=== PATIENT | female | born 1955 | race African-American/Black ===

== ENCOUNTER 2016-10-04 15:00 | Emergency (ER) | payer MEDICARE, OTHER ==
[~2016-10-04] VITALS: Ht 160 cm; Wt 83.5 kg
[~2016-10-04 15:00] MED LIST: ALPRAZOLAM; No home medications
--- NOTE | 2016-10-04 15:04 | ED.ADGEN ---
Adult General Chief Complaint Chief Complaint Elevated d-dimer HPI HPI Patient is a 61 year old who presents with abnormal lab values. According to patient she's been having cramps in her legs the last several months that come and go. She states is worse if she walks or if she lays down in her muscles cramp. She's also been having some shortness of breath when she is up the steps. She states this is been stable for several months also. She was seen by her primary care physician who ordered some blood tests and then today told her that her d-dimer was elevated. She was sent into the ER for a CT Jean of her chest to rule out PE. She denies any shortness of breath orthopnea, chest discomfort nausea vomiting. She does complain about entire leg cramps. Review of Systems Review of Systems Constitutional: Denies fever or chills [] Eyes: Denies change in visual acuity, redness, or eye pain [] HENT: Denies nasal congestion or sore throat [] Respiratory: Denies cough or shortness of breath [] Cardiovascular: No additional information not addressed in HPI [] GI: Denies abdominal pain, nausea, vomiting, bloody stools or diarrhea [] : Denies dysuria or hematuria [] Musculoskeletal: Denies back pain or joint pain [] Integument: Denies rash or skin lesions [] Neurologic: Denies headache, focal weakness or sensory changes [] Endocrine: Denies polyuria or polydipsia [] Current Medications Current Medications Current Medications Medications (Trade) Dose Ordered Sig/Lucian Start Time Stop Time Status Last Admin Dose Admin Iohexol (Omnipaque 300 Mg/ml) 75 ml 1X ONCE 10/04/16 15:45 10/04/16 15:46 DC 10/04/16 15:57 75 ML Sodium Chloride (Iv Sodium Chloride 0.9% 1,000ml) 1,000 ml @ 1,000 mls/hr Q1H 10/04/16 15:45 10/04/16 16:44 DC 10/04/16 15:45 1,000 MLS/HR Allergies Allergies Allergies Coded Allergies Type Severity Reaction Last Updated Verified No Known Drug Allergies 08/30/14 No Physical Exam Physical Exam Constitutional: Well developed, well nourished, no acute distress, non-toxic appearance. [] HENT: Normocephalic, atraumatic, bilateral external ears normal, oropharynx moist, no oral exudates, nose normal. [] Eyes: PERRLA, EOMI, conjunctiva normal, no discharge. [] Neck: Normal range of motion, no tenderness, supple, no stridor. [] Cardiovascular:Heart rate regular rhythm, no murmur [] Lungs & Thorax: Bilateral breath sounds clear to auscultation [] Abdomen: Bowel sounds normal, soft, no tenderness, no masses, no pulsatile masses. [] Skin: Warm, dry, no erythema, no rash. [] Back: No tenderness, no CVA tenderness. [] Extremities: No tenderness, no cyanosis, no clubbing, ROM intact, no edema. [] Neurologic: Alert and oriented X 3, normal motor function, normal sensory function, no focal deficits noted. [] Psychologic: Affect normal, judgement normal, mood normal. [] Current Patient Data Vital Signs Vital Signs Date Time Temp Pulse Resp B/P Pulse Ox O2 Delivery O2 Flow Rate FiO2 10/04/16 15:07 98.1 70 16 100 Room Air Lab Results Laboratory Tests Test 10/04/16 15:50 10/04/16 16:23 White Blood Count 7.0x10^3/uL (4.0-11.0) Red Blood Count 4.41x10^6/uL (3.50-5.40) Hemoglobin 12.7g/dL (12.0-15.5) Hematocrit 38.2% (36.0-47.0) Mean Corpuscular Volume 87fL (79-100) Mean Corpuscular Hemoglobin 29pg (25-35) Mean Corpuscular Hemoglobin Concent 33g/dL (31-37) Red Cell Distribution Width 14.2% (11.5-14.5) Platelet Count 346x10^3/uL (140-400) Neutrophils (%) (Auto) 48% (31-73) Lymphocytes (%) (Auto) 41% (24-48) Monocytes (%) (Auto) 8% (0-9) Eosinophils (%) (Auto) 2% (0-3) Basophils (%) (Auto) 1% (0-3) Neutrophils # (Auto) 3.3x10^3uL (1.8-7.7) Lymphocytes # (Auto) 2.8x10^3/uL (1.0-4.8) Monocytes # (Auto) 0.6x10^3/uL (0.0-1.1) Eosinophils # (Auto) 0.2x10^3/uL (0.0-0.7) Basophils # (Auto) 0.1x10^3/uL (0.0-0.2) Prothrombin Time 10.0SEC (9.4-11.4) Prothrombin Time INR 1.0 (0.9-1.1) PTT 26SEC (23-33) Sodium Level 145mmol/L (136-145) Potassium Level 3.6mmol/L (3.5-5.1) Chloride Level 106mmol/L (98-107) Carbon Dioxide Level 29mmol/L (21-32) Anion Gap 10 (6-14) Blood Urea Nitrogen 9mg/dL (7-20) Creatinine 0.8mg/dL (0.6-1.0) Estimated GFR (Cockcroft-Gault) 88.8 BUN/Creatinine Ratio 11 (6-20) Glucose Level 86mg/dL (70-99) Calcium Level 9.2mg/dL (8.5-10.1) Magnesium Level 2.0mg/dL (1.8-2.4) Total Bilirubin 0.3mg/dL (0.2-1.0) Aspartate Amino Transferase (AST) 16U/L (15-37) Alanine Aminotransferase (ALT) 19U/L (14-59) Alkaline Phosphatase 76U/L (46-116) Creatine Kinase 166U/L (26-192) Creatine Kinase MB (Mass) 0.8ng/mL (0.0-3.6) Creatine Kinase MB Relative Index 0.5% (0-4) Troponin I Quantitative < 0.017ng/mL (0-0.055) DN-Mny-T-Type Natriuretic Peptide 66pg/mL (0-124) Total Protein 7.7g/dL (6.4-8.2) Albumin 3.8g/dL (3.4-5.0) Albumin/Globulin Ratio 1.0 (1.0-1.7) Urine Collection Type Unknown Urine Color Straw Urine Clarity Hazy Urine pH 6.5 Urine Specific [place] 1.010 Urine Protein Neg (NEG-TRACE) Urine Glucose (UA) Negmg/dL (NEG) Urine Ketones (Stick) Negmg/dL (NEG) Urine Blood Neg (NEG) Urine Nitrite Neg (NEG) Urine Bilirubin Neg (NEG) Urine Urobilinogen Dipstick 0.2mg/dL (0.2 mg/dL) Urine Leukocyte Esterase Trace (NEG) Urine RBC 1-2/HPF (0-2) Urine WBC 5-10/HPF (0-4) Urine Squamous Epithelial Cells Many/LPF Urine Bacteria 0/HPF (0-FEW) Urine Opiates Screen Neg (NEG) Urine Methadone Screen Neg (NEG) Urine Barbiturates Neg (NEG) Urine Phencyclidine Screen Neg (NEG) Urine Amphetamine/Methamphetamine Neg (NEG) Urine Benzodiazepines Screen Pos (NEG) Urine Cocaine Screen Neg (NEG) Urine Cannabinoids Screen Neg (NEG) Urine Ethyl Alcohol Neg (NEG) EKG EKG EKG shows sinus rhythm with a rate of 62 bpm, no ST elevations appreciated, T- wave inversions noted in leads 3, aVF, left axis deviation, QTC 420 ms, as interpreted by me. Radiology/Procedures Radiology/Procedures [address] [address] IMAGING REPORT Signed PATIENT: HALLIE SHINE ACCOUNT: [id number] : 1955 LOCATION: ER AGE: 61 SEX: F EXAM STATUS: REG ER ORD. PHYSICIAN: MARYELLEN STEEN MD REASON: bilateral leg cramps PROCEDURE: VENOUS LOWER EXT BILATERAL Indication bilateral leg cramping. Grayscale color Doppler and spectral imaging was performed. Examination was targeted to the veins of the lower extremities. Bilaterally the common femoral, femoral and popliteal vessels demonstrate normal flow compressibility and augmentation. No thrombus is seen. The visualized calf veins, bilaterally, appeared unremarkable. IMPRESSION: Negative bilateral lower extremity venous analysis for DVT DICTATED AND SIGNED BY: CESAR CASTANON MD DATE: 10/04/16 2606 CC: ALLEN SLATER MD; MARYELLEN STEEN MD ~ [address] [address] IMAGING REPORT Signed PATIENT: HALLEI SHINE ACCOUNT: [id number] : 1955 LOCATION: ER AGE: 61 SEX: F EXAM STATUS: REG ER ORD. PHYSICIAN: MARYELLEN STEEN MD REASON: elevated D dimer PROCEDURE: CT ANGIOGRAPHY CHEST Indication chest pain. Elevated d-dimer. Contrast imaging through the chest was performed. Examination was tailored for the detection of pulmonary embolus. MIP images were generated and reviewed. 70 cc of Omnipaque 300 was administered intravenously. Note is made of a noncontrast examination of the chest 06/02/2015. Imaging through the upper abdomen shows no acute finding. There are bilateral renal cysts which appear similar to the previous exam. The thoracic aorta appears unremarkable. There is no significant hilar or mediastinal adenopathy. The study is negative for pulmonary embolus. There are scattered areas of pleural-parenchymal scarring. An acute parenchymal infiltrate is not seen. A dominant soft tissue mass is not seen. IMPRESSION: No acute finding apparent in the chest. Negative study for pulmonary embolus Renal cysts PQRS Compliance Statement: One or more of the following individualized dose reduction techniques were utilized for this examination: 1. Automated exposure control 2. Adjustment of the mA and/or kV according to patient size 3. Use of iterative reconstruction technique DICTATED AND SIGNED BY: CESAR CASTANON MD DATE: 10/04/16 1605 CC: ALLEN SLATER MD; MARYELLEN STEEN MD ~ Course & Med Decision Making Course & Med Decision Making Pertinent Labs and Imaging studies reviewed. (See chart for details) CT angiogram and bilateral lower show me Dopplers of both negative. Her symptoms have been going on for several months. Otherwise her vitals are stable condition. She is being discharged home to follow back up with her primary care physician. Return precautions given for increasing worsening shortness of breath , fevers, chest pain or other concerns. She did wonder why she is wheezing occasionally when she bends her neck and looks down and offered her an albuterol inhaler, she said that she would like to try to makes her feel better. She denies any dysuria or abdominal pain therefore do not believe she has a UTI. Final Impression Final Impression Elevated d-dimer Leg cramps Problems: Dragon Disclaimer Dragon Disclaimer This electronic medical record was generated, in whole or in part, using a voice recognition dictation system. MARYELLEN STEEN MD October 04, 2016 15:04
[2016-10-04 15:07] VITALS: BP 133/85
--- NOTE | 2016-10-04 15:29 | EKG ---
[address] [address] Test Date: 2016-10-04 Test Time: 15:32:16 Pat Name: HALLIE SHINE Department: Room: Gender: F Contract Admin: : 1955 Requested By: MARYELLEN STEEN Order Number: [id number] Reading MD: Anthony Singh Measurements Intervals [place] Rate: 62 P: [place]: QRS: -24 QRSD: 76 T: 4 QT: 414 QTc: 422 Interpretive Statements SINUS RHYTHM NON-SPECIFIC ST/T CHANGES Electronically Signed On 10-06-2016 10:11:18 CDT by Anthony Singh
[2016-10-04] MEDS ORDERED: IV NORMAL SALINE 1,000ML 1,000 ML IV SCH (15:45)
[2016-10-04] MEDS ORDERED: IOHEXOL 300 MG/ML 75 ML VIAL. IV ONE (15:45)
--- NOTE | 2016-10-04 16:18 | RAD ---
Indication chest pain. Elevated d-dimer. Contrast imaging through the chest was performed. Examination was tailored for the detection of pulmonary embolus. MIP images were generated and reviewed. 70 cc of Omnipaque 300 was administered intravenously. Note is made of a noncontrast examination of the chest 06/02/2015. Imaging through the upper abdomen shows no acute finding. There are bilateral renal cysts which appear similar to the previous exam. The thoracic aorta appears unremarkable. There is no significant hilar or mediastinal adenopathy. The study is negative for pulmonary embolus. There are scattered areas of pleural-parenchymal scarring. An acute parenchymal infiltrate is not seen. A dominant soft tissue mass is not seen. IMPRESSION: No acute finding apparent in the chest. Negative study for pulmonary embolus Renal cysts PQRS Compliance Statement: One or more of the following individualized dose reduction techniques were utilized for this examination: 1. Automated exposure control 2. Adjustment of the mA and/or kV according to patient size 3. Use of iterative reconstruction technique
--- NOTE | 2016-10-04 16:30 | RAD ---
Indication bilateral leg cramping. Grayscale color Doppler and spectral imaging was performed. Examination was targeted to the veins of the lower extremities. Bilaterally the common femoral, femoral and popliteal vessels demonstrate normal flow compressibility and augmentation. No thrombus is seen. The visualized calf veins, bilaterally, appeared unremarkable. IMPRESSION: Negative bilateral lower extremity venous analysis for DVT
[2016-10-04 16:32] LABS: BASO # 0.1 x10^3/uL (0.0-0.2); BASO % 1 % (0-3); EOS # 0.2 x10^3/uL (0.0-0.7); EOS % 2 % (0-3); HEMATOCRIT 38.2 % (36.0-47.0); HEMOGLOBIN 12.7 g/dL (12.0-15.5); LYMPH # 2.8 x10^3/uL (1.0-4.8); LYMPH % 41 % (24-48); MEAN CORPUSCULAR HEMOGLOBIN 29 pg (25-35); MEAN CORPUSCULAR HGB CONC 33 g/dL (31-37); MEAN CORPUSCULAR VOLUME 87 fL (79-100); MONO # 0.6 x10^3/uL (0.0-1.1); MONO % 8 % (0-9); NEUT # 3.3 x10^3uL (1.8-7.7); NEUT % 48 % (31-73); PLATELET COUNT 346 x10^3/uL (140-400); RED BLOOD COUNT 4.41 x10^6/uL (3.50-5.40); RED CELL DISTRIBUTION WIDTH 14.2 % (11.5-14.5)
[2016-10-04 16:45] LABS: AMPHETAMINE/METHAMPHETAMINE NEG (NEG); BARBITURATES NEG (NEG); BENZODIAZEPINES POS (NEG); CANNABINOIDS NEG (NEG); COCAINE NEG (NEG); METHADONE NEG (NEG); OPIATES NEG (NEG); PHENCYCLIDINE NEG (NEG)
[2016-10-04 16:51] LABS: ALBUMIN 3.8 g/dL (3.4-5.0); CALCIUM 9.2 mg/dL (8.5-10.1); CREATININE 0.8 mg/dL (0.6-1.0); GFR 88.8; POTASSIUM 3.6 mmol/L (3.5-5.1); TOTAL BILIRUBIN 0.3 mg/dL (0.2-1.0); TOTAL PROTEIN 7.7 g/dL (6.4-8.2)
[2016-10-04 17:11] LABS: BILIRUBIN,URINE NEG (NEG); CLARITY,URINE HAZY; COLOR,URINE STRAW; GLUCOSE,URINE NEG (NEG); NITRITE,URINE NEG (NEG); UROBILINOGEN,URINE 0.2 mg/dL (0.2 mg/dL)
[2016-10-04 17:12] LABS: BACTERIA,URINE 0 /HPF (0-FEW); SQUAMOUS EPITHELIAL CELL,UR MANY /LPF
[2016-10-04] MEDS ORDERED: ALBU18HF IH (17:12)
== END 2016-10-04 17:25 | disposition home or self-care (01) ==
LOC: ER 15:00
DX: G47.62 Sleep related leg cramps (principal); R79.1 Abnormal coagulation profile
CPT/HCPCS: 36415; 71275; 80053; 80305; 81001; 82553; 83735; 83880; 84443; 84484; 85027; 85610; 85730; 87086; 93005; 93970; 96360; 99285; Q9967; G0481; J7030

== ENCOUNTER 2018-11-29 13:20 | Emergency (ER) | payer OTHER ==
[~2018-11-29] VITALS: Ht 160 cm; Wt 86.2 kg
[~2018-11-29 13:20] MED LIST changes: +ALBU2.5V8 IH
[2018-11-29 14:03] LABS: BASO % 1 % (0-3); EOS # 0.2 x10^3/uL (0.0-0.7); EOS % 4 % (0-3); HEMATOCRIT 37.1 % (36.0-47.0); HEMOGLOBIN 12.6 g/dL (12.0-15.5); LYMPH % 38 % (24-48); MEAN CORPUSCULAR HEMOGLOBIN 29 pg (25-35); MEAN CORPUSCULAR HGB CONC 34 g/dL (31-37); MEAN CORPUSCULAR VOLUME 85 fL (79-100); MONO # 0.3 x10^3/uL (0.0-1.1); MONO % 6 % (0-9); NEUT # 2.7 x10^3uL (1.8-7.7); NEUT % 51 % (31-73); PLATELET COUNT 375 x10^3/uL (140-400); RED BLOOD COUNT 4.36 x10^6/uL (3.50-5.40); RED CELL DISTRIBUTION WIDTH 15.1 % (11.5-14.5); WHITE BLOOD COUNT 5.2 x10^3/uL (4.0-11.0)
--- NOTE | 2018-11-29 14:03 | RAD ---
Examination: CT HEAD WO CONTRAST History: Headaches Comparison/Correlation: None Findings: Axial images of the head were obtained without contrast. Atrophy is present. No intracranial hemorrhage, midline shift, or mass effect. Bony structures are unremarkable. Visualized paranasal sinuses are unremarkable. Impression: No acute process. PQRS Compliance Statement: One or more of the following individualized dose reduction techniques were utilized for this examination: 1. Automated exposure control 2. Adjustment of the mA and/or kV according to patient size 3. Use of iterative reconstruction technique Electronically signed by: Jose Pickard MD (11/29/2018 2:00 PM) [id number]
[2018-11-29 14:10] LABS: ALBUMIN 3.8 g/dL (3.4-5.0); CALCIUM 8.8 mg/dL (8.5-10.1); GFR 68.2; MAGNESIUM 1.9 mg/dL (1.8-2.4); POTASSIUM 3.9 mmol/L (3.5-5.1); TOTAL BILIRUBIN 0.2 mg/dL (0.2-1.0); TOTAL PROTEIN 7.6 g/dL (6.4-8.2)
--- NOTE | 2018-11-29 14:14 | PHYS DOC ---
Past History Past Medical History: Anxiety, Depression, High Cholesterol, Hypertension Past Surgical History: No Surgical History Alcohol Use: None Drug Use: None Adult General Chief Complaint Chief Complaint: DIZZY/LIGHT HEADED HPI HPI 63-year-old female presents from her PCPs office with concern for suicidal thoughts. The patient told my reading intervention teacher that she is here for recurring headaches, dizziness and chronic pain after a fall several months ago. The pa perlita tells me that she has been depressed since her fall not a flight of stairs several months ago. She does feel like she has chronic pain in multiple locations in his been having headaches and dizziness. She tells me that she is on psychiatric medications for depression and possibly bipolar. They have been adjusting these recently. She further tells me that she does have thoughts of being better off . She denies any intention to kill herself. She does not have a plan. She states that these thoughts are not overly frequent, but they do exist. She admits to feeling generally depressed about her current situation. She denies any new trauma. She has no specific dysfunctions, just pain in multiple locations. She does complain that she has had intermittent dizziness and also to headaches. She also tells me that her significant other told her she has been having involuntary movements. Her psychiatrist told her she does not believe it is medication related. No further workup has been done. The patient is not on any chronic pain medication. Review of Systems Review of Systems Constitutional: Denies fever or chills [] Eyes: Denies change in visual acuity, redness, or eye pain [] HENT: Denies nasal congestion or sore throat [] Respiratory: Denies cough or shortness of breath [] Cardiovascular: No additional information not addressed in HPI [] GI: Denies abdominal pain, nausea, vomiting, bloody stools or diarrhea [] : Denies dysuria or hematuria [] Musculoskeletal: Multi-joint pain[] Integument: Denies rash or skin lesions [] Neurologic: Headache. Denies focal weakness or sensory changes [] Endocrine: Denies polyuria or polydipsia [] All other systems were reviewed and found to be within normal limits, except as documented in this note. Allergies Allergies Allergies Coded Allergies Type Severity Reaction Last Updated Verified No Known Drug Allergies 08/30/14 No Physical Exam Physical Exam Constitutional: Well developed, well nourished, no acute distress, non-toxic appearance. [] HENT: Normocephalic, atraumatic, bilateral external ears normal, oropharynx moist, no oral exudates, nose normal. [] Eyes: PERRLA, EOMI, conjunctiva normal, no discharge. [] Neck: Normal range of motion, no tenderness, supple, no stridor. [] Cardiovascular:Heart rate regular rhythm, no murmur [] Lungs & Thorax: Bilateral breath sounds clear to auscultation [] Abdomen: Bowel sounds normal, soft, no tenderness, no masses, no pulsatile masses. [] Skin: Warm, dry, no erythema, no rash. [] Back: No tenderness, no CVA tenderness. [] Extremities: No tenderness, no cyanosis, no clubbing, ROM intact, no edema. [] Neurologic: Alert and oriented X 3, normal motor function, normal sensory function, no focal deficits noted. [] Psychologic: Affect flat, judgement normal, mood depressed. [] Current Patient Data Vital Signs Vital Signs Date Time Temp Pulse Resp B/P (MAP) Pulse Ox O2 Delivery O2 Flow Rate FiO2 11/29/18 13:48 98.7 82 18 98 Room Air EKG EKG Sinus rhythm, rate 79, leftward axis, no ST elevations or depressions.[] Radiology/Procedures Radiology/Procedures [] Impressions: Examination: CT HEAD WO CONTRAST History: Headaches Comparison/Correlation: None Findings: Axial images of the head were obtained without contrast. Atrophy is present. No intracranial hemorrhage, midline shift, or mass effect. Bony structures are unremarkable. Visualized paranasal sinuses are unremarkable. Impression: No acute process. PQRS Compliance Statement: One or more of the following individualized dose reduction techniques were utilized for this examination: 1. Automated exposure control 2. Adjustment of the mA and/or kV according to patient size 3. Use of iterative reconstruction technique Electronically signed by: Jose Chamberlain MD (11/29/2018 2:00 PM) [id number] DICTATED AND SIGNED BY: JOSE CHAMBERLAIN MD DATE: 11/29/18 1400 CC: SIERRA CLIFFORD DO; ALLEN SLATER MD ~ Course & Med Decision Making Course & Med Decision Making Pertinent Labs and Imaging studies reviewed. (See chart for details) The patient's head CT is negative for acute findings. EKG is unremarkable. Her labs are unremarkable. We have ordered a psychiatric consultation which is pending. Her labs are unremarkable. The psychiatrist believes patient can be safely managed as an outpatient. She is not actively suicidal. She is stable for discharge at this time. [] Dragon Disclaimer Dragon Disclaimer This electronic medical record was generated, in whole or in part, using a voice recognition dictation system. Departure Departure: Impression: Primary Impression: Depression Disposition: 01 HOME, SELF-CARE Condition: GUARDED Referrals: ALLEN SLATER MD (PCP) Patient Instructions: Depression, Adult, [id number] SIERRA CLIFFORD DO Nov 29, 2018 14:14
--- NOTE | 2018-11-29 14:28 | EKG ---
[address] [address] Test Date: 2018-11-29 Test Time: 14:24:58 Pat Name: HALLIE SHINE Department: Room: Gender: F Big Data Developer: : 1955 Requested By: SIERRA CLIFFORD Order Number: [id number] Reading MD: Measurements Intervals [place] Rate: 79 P: 38 DE: 164 QRS: -29 QRSD: 76 T: 24 QT: 390 QTc: 448 Interpretive Statements SINUS RHYTHM LEFTWARD AXIS OTHERWISE NORMAL ECG RI6.01 No previous ECG available for comparison
[2018-11-29] MEDS ORDERED: CYCL-331 PO (17:04)
[2018-11-29 17:10] VITALS: BP 154/73
[2018-11-29 17:23] LABS: BACTERIA,URINE 0 /HPF (0-FEW); BILIRUBIN,URINE NEG (NEG); CLARITY,URINE HAZY; COLOR,URINE YELLOW; GLUCOSE,URINE NEG (NEG); NITRITE,URINE NEG (NEG); RBC,URINE 0 /HPF (0-2); SQUAMOUS EPITHELIAL CELL,UR OCC /LPF; UROBILINOGEN,URINE 0.2 mg/dL (0.2 mg/dL); WBC,URINE OCC /HPF (0-4)
[2018-11-29 17:24] LABS: BARBITURATES NEG (NEG); BENZODIAZEPINES POS (NEG); CANNABINOIDS NEG (NEG); COCAINE NEG (NEG); METHADONE NEG (NEG); OPIATES NEG (NEG); PHENCYCLIDINE NEG (NEG)
[2018-11-29 17:25] LABS: AMPHETAMINE/METHAMPHETAMINE NEG (NEG)
== END 2018-11-29 17:11 | disposition home or self-care (01) ==
LOC: ER 13:20
DX: F32.9 Major depressive disorder, single episode, unspecified (principal); R51 Headache; R42 Dizziness and giddiness; F41.9 Anxiety disorder, unspecified; E78.00 Pure hypercholesterolemia, unspecified; I10 Essential (primary) hypertension
CPT/HCPCS: 36415; 70450; 80053; 80307; 81001; 83540; 83550; 83735; 84484; 85025; 87086; 93005; 99285

== ENCOUNTER 2019-03-21 17:45 | Observation (INO) | payer OTHER ==
[~2019-03-21] VITALS: Ht 160 cm; Wt 92.7 kg
[~2019-03-21 17:45] MED LIST changes: +CYCL-331 PO
--- NOTE | 2019-03-21 18:14 | EKG ---
[address] [address] Test Date: 2019-03-21 Test Time: 18:09:58 Pat Name: HALLIE SHINE Department: Room: Gender: F Machine Pan Greaser: JELANI : 1955 Requested By: SIERRA CLIFFORD Order Number: [id number] Reading MD: Anthony Singh MD Measurements Intervals [place] Rate: 114 P: -144 AL: 130 QRS: 39 QRSD: 78 T: 25 QT: 338 QTc: 469 Interpretive Statements SINUS TACHYCARDIA NON-SPECIFIC ST/T CHANGES Electronically Signed On 03-27-2019 15:39:03 CDT by Anthony Singh MD
[2019-03-21] MEDS ORDERED: IV NORMAL SALINE 1,000ML 1,000 ML IV ONE (18:15)
[2019-03-21] MEDS ORDERED: IPRATRPIUM/ALBUTEROL 0.5/2.5MG 3 ML NEBU. NEB ONE ×2 (18:15→19:30)
[2019-03-21] MEDS ORDERED: IOHEXOL 350 MG/ML 100 ML VIAL. IV ONE (18:15)
[2019-03-21] MEDS ORDERED: methylPREDNISolone SOD SUCC PF 125 MG/2 ML VIAL. IV ONE (18:15)
--- NOTE | 2019-03-21 18:15 | PHYS DOC ---
Past History Past Medical History: Anxiety, Depression, High Cholesterol, Hypertension Past Surgical History: No Surgical History Alcohol Use: None Drug Use: None Adult General Chief Complaint Chief Complaint: SHORTNESS OF BREATH HPI HPI 63-year-old female presents from her PCPs office with 3 day history of shortness of breath. It was mild 3 days ago, but really increased yesterday. She ran out of her albuterol MDI less than a week ago. She has no diagnosis of COPD or asthma, but tells me that she uses an albuterol inhaler every day. The patient went to her PCPs office and got a refill on her inhaler. She was found have an elevated d-dimer so they sent her to the emergency room for evaluation for PE. Patient was tachycardic there and on arrival to the ED. She tells me there was no particular thing that increased her shortness of breath, it just got worse. She denies fever or chills. Review of Systems Review of Systems Constitutional: Denies fever or chills [] Eyes: Denies change in visual acuity, redness, or eye pain [] HENT: Denies nasal congestion or sore throat [] Respiratory: shortness of breath [] Cardiovascular: No additional information not addressed in HPI [] GI: Denies abdominal pain, nausea, vomiting, bloody stools or diarrhea [] : Denies dysuria or hematuria [] Musculoskeletal: Denies back pain or joint pain [] Integument: Denies rash or skin lesions [] Neurologic: Denies headache, focal weakness or sensory changes [] Endocrine: Denies polyuria or polydipsia [] All other systems were reviewed and found to be within normal limits, except as documented in this note. Current Medications Current Medications Current Medications Medications (Trade) Dose Ordered Sig/Lucian Start Time Stop Time Status Last Admin Dose Admin Albuterol/ Ipratropium (Duoneb) 3 ml 1X ONCE 03/21/19 18:15 03/21/19 18:16 Iohexol (Omnipaque 350 Mg/ml) 100 ml 1X ONCE 03/21/19 18:15 03/21/19 18:16 UNV Allergies Allergies Allergies Coded Allergies Type Severity Reaction Last Updated Verified No Known Drug Allergies 08/30/14 No Physical Exam Physical Exam Constitutional: Well developed, well nourished, mild acute distress, non-toxic appearance. [] HENT: Normocephalic, atraumatic, bilateral external ears normal, oropharynx moist, no oral exudates, nose normal. [] Eyes: PERRLA, EOMI, conjunctiva normal, no discharge. [] Neck: Normal range of motion, no tenderness, supple, no stridor. [] Cardiovascular:Heart rate regular rhythm, no murmur [] Lungs & Thorax: Bilateral expiratory wheezing. Rapid respirations.[] Abdomen: Bowel sounds normal, soft, no tenderness, no masses, no pulsatile masses. [] Skin: Warm, dry, no erythema, no rash. [] Back: No tenderness, no CVA tenderness. [] Extremities: No tenderness, no cyanosis, no clubbing, ROM intact, no edema. [] Neurologic: Alert and oriented X 3, normal motor function, normal sensory function, no focal deficits noted. [] Psychologic: Affect normal, judgement normal, mood normal. [] Current Patient Data Vital Signs Vital Signs Date Time Temp Pulse Resp B/P (MAP) Pulse Ox O2 Delivery O2 Flow Rate FiO2 03/21/19 17:55 98.1 100 23 96 Room Air EKG EKG Sinus tachycardia, rate 114, normal axis, no ST elevations or depressions.[] Radiology/Procedures Radiology/Procedures [] Impressions: PA and lateral chest x-ray HISTORY: Shortness of breath. COMPARISON: CT chest October 04, 2016. FINDINGS: Mild elevation of the right diaphragm is stable. ACDF lower cervical spine. Heart size normal. Mediastinal silhouette is normal. No pneumothorax, pulmonary opacities or pleural effusions. IMPRESSION: No acute process. Electronically signed by: Nanda Crum MD (03/21/2019 7:01 PM) [facility] DICTATED AND SIGNED BY: NANDA CRUM MD DATE: 03/21/191900 CC: SIERRA CLIFFORD DO; ALLEN SLATER MD ~ CT angiography chest with contrast PQRS statement: CT scans at this facility use dose reduction including either automated exposure control, iterative reconstructions, and /or weight based radiation dosing via mA and kV modification when appropriate to reduce radiation dose to as low as reasonably achievable. HISTORY: Elevated d-dimer, shortness of breath. TECHNIQUE: Helical CT imaging the chest with 3-D MIP reconstructions of the pulmonary arteries to assess for emboli with 100 mL Omnipaque 350 intravenous contrast. FINDINGS: ACDF C6-C7 cervical spine. There are mild vertebral endplate compression deformities with very mild height loss of T5-T9 thoracic vertebra new from prior CT imaging in 2017. There is significantly decreased contrast density throughout the pulmonary arteries not allowing assessment for emboli. No large central pulmonary artery embolus of the main or right and left pulmonary artery central of the kwadwo evident. Pulmonary emboli at the kwadwo or within the lobe arterial branches cannot be excluded on this exam. Thoracic aorta unremarkable. Left coronary calcified plaque. Heart size normal. Esophagus unremarkable. No adenopathy in the chest. Elevation or large eventration of the right diaphragm containing the dome of the liver with passive atelectasis of the basilar portions of the right middle and lower lobes. This is stable. No pneumothorax. No pleural effusions. Mild discoid atelectasis left lung base. No consolidated pulmonary opacities. Small calcified granuloma right upper lobe. Large renal cysts extending outside the [id number]. IMPRESSION: 1. Limited contrast opacification of the pulmonary arteries significantly limiting the ability to assess for emboli. See discussion above. 2. No acute process evident. Mild atelectasis at the lung bases. 3. Age-indeterminate mild thoracic vertebral endplate compression deformities of the T5-T9 thoracic vertebra new from CT imaging in 2017. Electronically signed by: Nanda Crum MD (03/21/2019 7:09 PM) [facility] DICTATED AND SIGNED BY: NANDA CRUM MD DATE: 03/21/191908 CC: SIERRA CLIFFORD DO; ALLEN SLATER MD ~ Course & Med Decision Making Course & Med Decision Making Pertinent Labs and Imaging studies reviewed. (See chart for details) The patient's labs are unremarkable except for mild anemia. She does have bilateral expiratory wheezing. I suspect this is COPD exacerbation. Patient has been given a DuoNeb treatment and 125 of Solu-Medrol. Chest x-ray and CT angiogram of the chest are pending. Chest x-ray is negative for acute findings. CT angiogram of the chest is suboptimal for PE evaluation. No large vessel occlusion seen. See official report for details. I believe the patient is having a COPD exacerbation. She continues to have expiratory wheezing after the breathing treatment, though she states she is feeling better. I discussed admission with the patient and she is willing to be admitted. I spoke with Dr. Slater and he has agreed to admit the patient for further management and treatment. [] Dragon Disclaimer Dragon Disclaimer This electronic medical record was generated, in whole or in part, using a voice recognition dictation system. Departure Departure: Impression: Primary Impression: Shortness of breath Additional Impression: COPD exacerbation Disposition: ADMITTED INPATIENT Admitting Physician: Allen Slater Condition: STABLE Referrals: ALLEN SLATER MD (PCP) Problem Qualifiers SIERRA CLIFFORD DO Mar 21, 2019 18:15
[2019-03-21 18:33] LABS: BASO # 0.1 x10^3/uL (0.0-0.2); BASO % 1 % (0-3); EOS % 1 % (0-3); HEMATOCRIT 34.4 % (36.0-47.0); HEMOGLOBIN 11.4 g/dL (12.0-15.5); LYMPH # 1.5 x10^3/uL (1.0-4.8); LYMPH % 23 % (24-48); MEAN CORPUSCULAR HEMOGLOBIN 29 pg (25-35); MEAN CORPUSCULAR HGB CONC 33 g/dL (31-37); MEAN CORPUSCULAR VOLUME 87 fL (79-100); MONO # 0.5 x10^3/uL (0.0-1.1); MONO % 7 % (0-9); NEUT # 4.5 x10^3uL (1.8-7.7); NEUT % 68 % (31-73); PLATELET COUNT 340 x10^3/uL (140-400); RED BLOOD COUNT 3.97 x10^6/uL (3.50-5.40); RED CELL DISTRIBUTION WIDTH 15.1 % (11.5-14.5); WHITE BLOOD COUNT 6.5 x10^3/uL (4.0-11.0)
[2019-03-21 18:41] LABS: TOTAL BILIRUBIN 0.1 mg/dL (0.2-1.0)
[2019-03-21 18:56] LABS: ALBUMIN 3.7 g/dL (3.4-5.0); ALBUMIN/GLOBULIN RATIO 0.9 (1.0-1.7); CALCIUM 8.7 mg/dL (8.5-10.1); GFR 68.2; POTASSIUM 4.1 mmol/L (3.5-5.1); TOTAL PROTEIN 7.6 g/dL (6.4-8.2)
--- NOTE | 2019-03-21 19:03 | RAD ---
PA and lateral chest x-ray HISTORY: Shortness of breath. COMPARISON: CT chest October 04, 2016. FINDINGS: Mild elevation of the right diaphragm is stable. ACDF lower cervical spine. Heart size normal. Mediastinal silhouette is normal. No pneumothorax, pulmonary opacities or pleural effusions. IMPRESSION: No acute process. Electronically signed by: Joel Crum MD (03/21/2019 7:01 PM) [facility]
--- NOTE | 2019-03-21 19:13 | RAD ---
CT angiography chest with contrast PQRS statement: CT scans at this facility use dose reduction including either automated exposure control, iterative reconstructions, and /or weight based radiation dosing via mA and kV modification when appropriate to reduce radiation dose to as low as reasonably achievable. HISTORY: Elevated d-dimer, shortness of breath. TECHNIQUE: Helical CT imaging the chest with 3-D MIP reconstructions of the pulmonary arteries to assess for emboli with 100 mL Omnipaque 350 intravenous contrast. FINDINGS: ACDF C6-C7 cervical spine. There are mild vertebral endplate compression deformities with very mild height loss of T5-T9 thoracic vertebra new from prior CT imaging in 2017. There is significantly decreased contrast density throughout the pulmonary arteries not allowing assessment for emboli. No large central pulmonary artery embolus of the main or right and left pulmonary artery central of the kwadwo evident. Pulmonary emboli at the kwadwo or within the lobe arterial branches cannot be excluded on this exam. Thoracic aorta unremarkable. Left coronary calcified plaque. Heart size normal. Esophagus unremarkable. No adenopathy in the chest. Elevation or large eventration of the right diaphragm containing the dome of the liver with passive atelectasis of the basilar portions of the right middle and lower lobes. This is stable. No pneumothorax. No pleural effusions. Mild discoid atelectasis left lung base. No consolidated pulmonary opacities. Small calcified granuloma right upper lobe. Large renal cysts extending outside the [id number]. IMPRESSION: 1. Limited contrast opacification of the pulmonary arteries significantly limiting the ability to assess for emboli. See discussion above. 2. No acute process evident. Mild atelectasis at the lung bases. 3. Age-indeterminate mild thoracic vertebral endplate compression deformities of the T5-T9 thoracic vertebra new from CT imaging in 2017. Electronically signed by: Joel Crum MD (03/21/2019 7:09 PM) [facility]
[2019-03-21] MEDS ORDERED: ACETAMINOPHEN 325 MG TABLET PO PRN (19:30)
[2019-03-21] MEDS ORDERED: ONDANSETRON PF 4 MG/2 ML VIAL. IV PRN (19:30)
[2019-03-21] MEDS ORDERED: cloNIDine HCL 0.1 MG TABLET PO ONE (20:15)
[2019-03-21 20:35] VITALS: BP 183/83
[2019-03-21] MEDS: IPRATRPIUM/ALBUTEROL 0.5/2.5MG 3 ML NEBU. NEB SCH (20:44)
[2019-03-21] MEDS ORDERED: HYDROcodone/APAP 5/325MG 1 TAB TABLET PO PRN (21:30)
[2019-03-21] MEDS: HYDROcodone/APAP 5/325MG 1 TAB TABLET PO PRN (21:59)
[2019-03-21 22:01] VITALS: BP 158/81
[2019-03-21] MEDS ORDERED: ALBUTEROL SULFATE 2.5 MG/3 ML NEBU. NEB PRN (23:00)
[2019-03-21 23:28] VITALS: BP 153/89
[2019-03-22] MEDS: HYDROcodone/APAP 5/325MG 1 TAB TABLET PO PRN (02:40)
[2019-03-22] MEDS: IPRATRPIUM/ALBUTEROL 0.5/2.5MG 3 ML NEBU. NEB SCH ×4 (04:56→21:25)
[2019-03-22 05:04] VITALS: BP 132/75
[2019-03-22] MEDS ORDERED: OMEP40CA45 PO (08:36)
[2019-03-22] MEDS ORDERED: GABA600T7 PO ×2 (08:36)
[2019-03-22] MEDS ORDERED: QUET200T4 PO (08:36)
[2019-03-22] MEDS ORDERED: LOXA25CA PO (08:36)
[2019-03-22] MEDS ORDERED: ALPR0.5T6 PO (08:36)
[2019-03-22] MEDS ORDERED: VENL150C6 PO (08:36)
[2019-03-22] MEDS ORDERED: [UNRECOGNIZED DRUG - CODE] PO (08:36)
[2019-03-22] MEDS ORDERED: QUET25TA PO (08:36)
[2019-03-22] MEDS ORDERED: MELO15TA23 PO (08:36)
[2019-03-22] MEDS ORDERED: VENLAFAXINE HCL PO SCH (09:00)
[2019-03-22] MEDS ORDERED: ALBUTEROL SULFATE 2.5 MG/3 ML NEBU. NEB PRN (09:00)
[2019-03-22 10:41] VITALS: BP 154/87
[2019-03-22] MEDS: QUEtiapine 25 MG TABLET. PO SCH (11:39)
[2019-03-22] MEDS: GABAPENTIN 300 MG CAPSULE. PO SCH (11:39)
--- NOTE | 2019-03-22 15:01 | HP ---
ADMIT DATE: 03/21/2019 HISTORY OF PRESENT ILLNESS: A 63-year-old female, who had been having problems with breathing and then tried to be treated as an outpatient; however, had continued to have problems here over the last 3 days, getting progressively worse. She ran out of some of her medications. She does have asthma in all lobes. The patient was seen, went home, and refilled on her inhaler, but continued to do worse and had an elevated D-dimer, but CTA in the Emergency Room was negative. Because the patient failed to progress as an outpatient and got only worse, the patient was admitted to the hospital for further evaluation and treatment of her acute exacerbation of asthma. PAST MEDICAL HISTORY: Hypertension, cervical fusion, psychiatric problems, panic disorder, depression, and anxiety and seen at the [facility], where most of her antianxiety and other medications are given. Her influenza vaccine ____ up-to-date. FAMILY HISTORY: Diabetes, brother and mother. MEDICATIONS: List has been reviewed and will be also reviewed by Psychiatry since there are multiple medications such as gabapentin 600 mg at bedtime and 300 b.i.d., Venlafaxine 150 mg, loxapine 25 mg at bedtime, Seroquel 25 mg b.i.d., Xanax 1 mg b.i.d., Prilosec 40 mg a day, Ventolin inhaler, and meloxicam. ALLERGIES: No known allergies. The patient is full code. SOCIAL HISTORY: The patient denies smoking, alcohol, or drug use. REVIEW OF SYSTEMS: The patient denies any headaches, visual changes, blurred vision, or double vision. Denies any melena, hematochezia, or hematemesis and neurologically intact. PHYSICAL EXAMINATION: GENERAL: This is a pleasant Afro-Burkin[place] female in no apparent distress. VITAL SIGNS: Blood pressure 154/87, respiratory rate 18, pulse 90, and afebrile. The patient's oxygen saturation on admission was 94% on room air. Blood pressure went as high as 186/107. HEENT: The patient's head was atraumatic and normocephalic in this pleasant female. Mouth and throat were normal. NECK: Supple. LUNGS: Show inspiratory and expiratory wheezes in all lobes. CARDIOVASCULAR: Regular sinus rhythm and tachycardic at times. Regular sinus rhythm, S1 and S2, without murmur, rub, thrill, or extra heart sound. ABDOMEN: Protuberant, soft, and nontender. EXTREMITIES: No clubbing or cyanosis, nor edema. NEUROLOGIC: The patient is alert and oriented. Speech is fluent, spontaneous, and appropriate. Cranial nerves 2-12 are grossly intact and patient is making excellent conversation. IMPRESSION: Family was involved and wanted to know if she needs to be on all her medications. I said I consulted with psych unit to evaluate the multiplicity of psych medications that the patient is on and they would like to see if she can be tapered off some of those and I said I will have the psychiatrist review those. ALLEN SLATER MD DR: ANY/lambert JOB#: [id number] / [id number]
[2019-03-22 15:12] VITALS: BP 166/80
[2019-03-22] MEDS: ALPRAZolam 0.5 MG TABLET PO SCH (15:59)
[2019-03-22] MEDS ORDERED: IBUP400T18 PO (16:02)
[2019-03-22 20:09] VITALS: BP 154/87
[2019-03-22] MEDS ORDERED: LOXAPINE SUCCINATE 25 MG CAPSULE PO SCH (21:00)
[2019-03-22] MEDS ORDERED: lamoTRIgine 100 MG TABLET. PO SCH (21:00)
[2019-03-22] MEDS ORDERED: GABAPENTIN 300 MG CAPSULE. PO SCH (21:00)
[2019-03-22] MEDS ORDERED: QUEtiapine 100 MG TABLET. PO SCH (21:00)
[2019-03-22 23:23] VITALS: BP 105/63
[2019-03-23] MEDS: IPRATRPIUM/ALBUTEROL 0.5/2.5MG 3 ML NEBU. NEB SCH ×2 (05:35→11:25)
[2019-03-23 06:16] VITALS: BP 121/76
[2019-03-23] MEDS ORDERED: PANTOPRAZOLE 40 MG TABLET. PO SCH (07:30)
[2019-03-23] MEDS: ALPRAZolam 0.5 MG TABLET PO SCH (07:57)
[2019-03-23] MEDS: GABAPENTIN 300 MG CAPSULE. PO SCH (07:57)
[2019-03-23] MEDS: QUEtiapine 25 MG TABLET. PO SCH (07:58)
[2019-03-23] MEDS ORDERED: predniSONE 10 MG TABLET PO SCH (09:00)
[2019-03-23] MEDS ORDERED: VENLAFAXINE XR 37.5 MG CAP.ER.24H. PO SCH (09:00)
[2019-03-23] MEDS ORDERED: MELOXICAM 15 MG TABLET. PO SCH (09:00)
[2019-03-23] MEDS ORDERED: IPRA3AMP29 NEB (10:29)
[2019-03-23] MEDS ORDERED: BENZ100C PO (10:29)
[2019-03-23] MEDS ORDERED: PRED5TAB PO (10:29)
[2019-03-23 10:33] VITALS: BP 156/81
--- NOTE | 2019-03-24 00:11 | DS ---
DATE OF DISCHARGE: 03/23/2019 HOSPITAL COURSE: A 63-year-old female who came in with exacerbation of her asthma. She was unable to be controlled as an outpatient, got progressively worse, had a positive D-dimer. Her CTA was basically unremarkable as far as mild atelectasis in lung bases. The patient had an endplate thoracic compression deformity of T5-T9, which was fairly new. The patient did not really complain too much of back pain actually. The patient's hemoglobin was slightly low at 11.4 and hematocrit 34. Chemistries were unremarkable. The patient made good progress with aggressive pulmonary toilet. She had a positive D-dimer, but her CTA as noted was unremarkable. The patient made good progress during the rest of this hospitalization. She was ambulatory throughout her hospitalization. The patient made good progress and was discharged home. IMPRESSION: Acute exacerbation of asthma, hyperglycemia and anemia. DISPOSITION: The patient will be discharged to home and have further evaluation. She will be given another nebulizer, DuoNeb. See MRAD. Decreased activity and monitor her diet and her weight there. ALLEN SLATER MD DR: ANY/lambert JOB#: [id number] / [id number]
== END 2019-03-23 11:41 | disposition home health service (06) ==
LOC: ER 17:45 → INTOOBSV 19:30 → 1 SOUTH 19:30
PROVIDERS: ADMIT Family Medicine; ATTEND Family Medicine
DX: J44.1 Chronic obstructive pulmonary disease with (acute) exacerbation (principal); J45.901 Unspecified asthma with (acute) exacerbation; I10 Essential (primary) hypertension; F32.9 Major depressive disorder, single episode, unspecified; F41.9 Anxiety disorder, unspecified; R73.9 Hyperglycemia, unspecified; D64.9 Anemia, unspecified; E78.00 Pure hypercholesterolemia, unspecified; Z83.3 Family history of diabetes mellitus
CPT/HCPCS: 36415; 71046; 71275; 80053; 84484; 85025; 85379; 93005; 94640; 96374; 97162; 97165; 97530; 99284; G0378; J2930; J7512; J7613; J7620; Q9967; 96361; G0379; 99285-25; J7030

== ENCOUNTER 2019-06-08 12:05 | Emergency (ER) | payer SELFPAY ==
[~2019-06-08] VITALS: Ht 160 cm; Wt 95.3 kg
[~2019-06-08 12:05] MED LIST changes: +ALPR0.5T6 PO; +BENZ100C PO; +GABA600T7 PO; +IBUP400T18 PO; +IPRA3AMP29 NEB; +LOXA25CA PO; +MELO15TA23 PO; +OMEP40CA45 PO; +PRED5TAB PO; +QUET200T4 PO; +QUET25TA PO; +VENL150C6 PO; +[UNRECOGNIZED DRUG - CODE] PO
[2019-06-08] MEDS ORDERED: ASPIRIN 81 MG TAB.CHEW PO ONE (12:30)
[2019-06-08 12:47] LABS: BASO % 1 % (0-3); EOS # 0.2 x10^3/uL (0.0-0.7); EOS % 4 % (0-3); HEMATOCRIT 36.4 % (36.0-47.0); LYMPH # 1.5 x10^3/uL (1.0-4.8); LYMPH % 27 % (24-48); MEAN CORPUSCULAR HEMOGLOBIN 29 pg (25-35); MEAN CORPUSCULAR HGB CONC 33 g/dL (31-37); MEAN CORPUSCULAR VOLUME 88 fL (79-100); MONO # 0.5 x10^3/uL (0.0-1.1); MONO % 9 % (0-9); NEUT # 3.2 x10^3uL (1.8-7.7); NEUT % 59 % (31-73); PLATELET COUNT 331 x10^3/uL (140-400); RED BLOOD COUNT 4.15 x10^6/uL (3.50-5.40); RED CELL DISTRIBUTION WIDTH 16.1 % (11.5-14.5); WHITE BLOOD COUNT 5.4 x10^3/uL (4.0-11.0)
--- NOTE | 2019-06-08 12:48 | RAD ---
Examination: PORTABLE CHEST 1V History: Chest pain Comparison/Correlation: 03/21/2019. Physical exam Findings: Upright portable frontal view chest was obtained. Postoperative cervical spine fusion noted. Elevation of right hemidiaphragm is again seen. No infiltrate or pleural effusion. Minimal discoid atelectasis of the lung bases. No pneumothorax. Bony structures are intact Impression: Minimal discoid atelectasis. Electronically signed by: Jose Pickard MD (06/08/2019 12:44 PM) [facility]
[2019-06-08 12:52] LABS: CALCIUM 8.5 mg/dL (8.5-10.1); GFR 68.2; POTASSIUM 3.7 mmol/L (3.5-5.1)
[2019-06-08 12:58] LABS: ALBUMIN 3.7 g/dL (3.4-5.0); ALBUMIN/GLOBULIN RATIO 1.1 (1.0-1.7); MAGNESIUM 2.2 mg/dL (1.8-2.4); TOTAL BILIRUBIN 0.4 mg/dL (0.2-1.0); TOTAL PROTEIN 7.1 g/dL (6.4-8.2)
[2019-06-08 13:15] VITALS: BP 131/71
--- NOTE | 2019-06-08 13:15 | PHYS DOC ---
Past History Past Medical History: Anxiety, Depression, High Cholesterol, Hypertension Past Surgical History: , Other Additional Past Surgical Histo: THROAT SURGERY Alcohol Use: None Drug Use: None Adult General Chief Complaint Chief Complaint: CHEST PAIN HPI HPI Patient is a 63-year-old female who arrives from Dr. Slater's office with report of chest discomfort and shaking of her hands. Patient states that the pain started last night. She rates the pain at a 7 out of 10. She describes pain as a burning type pain. She denies any nausea, vomiting or diaphoresis. Patient states that she thinks that the shaking in her hands as of her albuterol treatments.[] Review of Systems Review of Systems Constitutional: Denies fever or chills [] Respiratory: Complains of cough and intermittent shortness of breath [] Cardiovascular: No additional information not addressed in HPI [] GI: Denies abdominal pain, nausea, vomiting or diarrhea [] Integument: Denies rash or skin lesions [] Neurologic: Denies headache, focal weakness or sensory changes [] All other systems were reviewed and found to be within normal limits, except as documented in this note. Current Medications Current Medications Current Medications Medications (Trade) Dose Ordered Sig/Lucian Start Time Stop Time Status Last Admin Dose Admin Aspirin (Children'S Aspirin) 324 mg 1X ONCE 06/08/19 12:30 06/08/19 12:31 DC 06/08/19 12:50 324 MG Allergies Allergies Allergies Coded Allergies Type Severity Reaction Last Updated Verified No Known Drug Allergies 08/30/14 No Physical Exam Physical Exam Constitutional: Well developed, well nourished, no acute distress, non-toxic appearance. [] HENT: Normocephalic, atraumatic, bilateral external ears normal, oropharynx moist, no oral exudates, nose normal. [] Eyes: PERRLA, EOMI, conjunctiva normal, no discharge. [] Neck: Normal range of motion, no tenderness, supple. [] Cardiovascular: Regular rate and rhythm[] Lungs & Thorax: Bilateral breath sounds clear to auscultation [] Abdomen: Bowel sounds normal, soft, no tenderness. [] Skin: Warm, dry, no erythema, no rash. [] Extremities: No tenderness, no cyanosis, no clubbing, ROM intact. [] Neurologic: Alert and oriented X 3, no focal deficits noted. [] Current Patient Data Vital Signs Vital Signs Date Time Temp Pulse Resp B/P (MAP) Pulse Ox O2 Delivery O2 Flow Rate FiO2 06/08/19 12:54 94 20 141/106 (118) 96 Room Air 06/08/19 12:15 98.2 Lab Results Laboratory Tests Test 06/08/19 12:31 White Blood Count 5.4 x10^3/uL (4.0-11.0) Red Blood Count 4.15 x10^6/uL (3.50-5.40) Hemoglobin 12.0 g/dL (12.0-15.5) Hematocrit 36.4 % (36.0-47.0) Mean Corpuscular Volume 88 fL (79-100) Mean Corpuscular Hemoglobin 29 pg (25-35) Mean Corpuscular Hemoglobin Concent 33 g/dL (31-37) Red Cell Distribution Width 16.1 % (11.5-14.5) H Platelet Count 331 x10^3/uL (140-400) Neutrophils (%) (Auto) 59 % (31-73) Lymphocytes (%) (Auto) 27 % (24-48) Monocytes (%) (Auto) 9 % (0-9) Eosinophils (%) (Auto) 4 % (0-3) H Basophils (%) (Auto) 1 % (0-3) Neutrophils # (Auto) 3.2 x10^3uL (1.8-7.7) Lymphocytes # (Auto) 1.5 x10^3/uL (1.0-4.8) Monocytes # (Auto) 0.5 x10^3/uL (0.0-1.1) Eosinophils # (Auto) 0.2 x10^3/uL (0.0-0.7) Basophils # (Auto) 0.0 x10^3/uL (0.0-0.2) Sodium Level 145 mmol/L (136-145) Potassium Level 3.7 mmol/L (3.5-5.1) Chloride Level 107 mmol/L (98-107) Carbon Dioxide Level 28 mmol/L (21-32) Anion Gap 10 (6-14) Blood Urea Nitrogen 8 mg/dL (7-20) Creatinine 1.0 mg/dL (0.6-1.0) Estimated GFR (Cockcroft-Gault) 68.2 BUN/Creatinine Ratio 8 (6-20) Glucose Level 99 mg/dL (70-99) Calcium Level 8.5 mg/dL (8.5-10.1) Magnesium Level 2.2 mg/dL (1.8-2.4) Total Bilirubin 0.4 mg/dL (0.2-1.0) Aspartate Amino Transferase (AST) 36 U/L (15-37) Alanine Aminotransferase (ALT) 43 U/L (14-59) Alkaline Phosphatase 92 U/L (46-116) Troponin I Quantitative < 0.017 ng/mL (0-0.055) Total Protein 7.1 g/dL (6.4-8.2) Albumin 3.7 g/dL (3.4-5.0) Albumin/Globulin Ratio 1.1 (1.0-1.7) EKG EKG [] Radiology/Procedures Radiology/Procedures [] Impressions: PROCEDURE: PORTABLE CHEST 1V Examination: PORTABLE CHEST 1V History: Chest pain Comparison/Correlation: 03/21/2019. Physical exam Findings: Upright portable frontal view chest was obtained. Postoperative cervical spine fusion noted. Elevation of right hemidiaphragm is again seen. No infiltrate or pleural effusion. Minimal discoid atelectasis of the lung bases. No pneumothorax. Bony structures are intact Impression: Minimal discoid atelectasis. Electronically signed by: Jose Chamberlain MD (06/08/2019 12:44 PM) [facility] DICTATED AND SIGNED BY: JOSE CHAMBERLAIN MD DATE: 06/08/19 1244 Course & Med Decision Making Course & Med Decision Making Pertinent Labs and Imaging studies reviewed. (See chart for details) Workup completed and findings reviewed with patient. I did discuss admission versus discharge home with patient and patient states that she does not want to be admitted and states that she needs to be discharged to go home. Dragon Disclaimer Dragon Disclaimer This electronic medical record was generated, in whole or in part, using a voice recognition dictation system. Departure Departure: Impression: Primary Impression: Atypical chest pain Disposition: HOME, SELF-CARE Condition: STABLE Referrals: ALLEN SLATER MD (PCP) Patient Instructions: Chest Pain (Nonspecific) JUAN JOSE MYLES Jr. DO Jun 08, 2019 13:15
== END 2019-06-08 13:23 | disposition home or self-care (01) ==
LOC: ER 12:05
DX: R07.89 Other chest pain (principal); E78.00 Pure hypercholesterolemia, unspecified; I10 Essential (primary) hypertension
CPT/HCPCS: 36415; 71045; 80053; 83735; 84484; 85025; 99285

== ENCOUNTER → 2020-06-13 | Outpatient (CLI) | payer MEDICARE ==
--- NOTE | 2020-06-13 13:39 | RAD ---
Double contrast barium enema study 06/13/2020 CLINICAL HISTORY: Incomplete colonoscopy. Difficulty with bowel movements. TECHNIQUE: A double contrast barium enema study was performed under fluoroscopic and radiographic con trol. The total fluoroscopic time is 2 minutes 3 seconds. A 8 digital spot radiographs of the colon w ere obtained. FINDINGS: Comparison is made to a CT scan of the abdomen and pelvis dated 11/04/2014. An AP digital radiograph abdomen/pelvis was obtained as legal department manager. This demonstrates a nonobstructive bow el gas pattern. Calcifications are seen within the pelvis consistent with phleboliths. No radiopaque calculus is seen. Degenerative changes are seen involving the lower lumbar spine. The entire colon is distended with barium and air. The cecum is in its normal location within the rig ht lower quadrant of the abdomen. The appendix is well-visualized and is within normal limits. No muc osal abnormality of the colon is seen. No annular constricting lesion is noted. IMPRESSION: Negative study. Electronically signed by: Damien Paeg MD (06/13/2020 1:36 PM) [id number]
== END ==
LOC: RAD 07:58
PROVIDERS: ATTEND Internal Medicine Gastroenterology
DX: Z12.11 Encounter for screening for malignant neoplasm of colon (principal); K63.89 Other specified diseases of intestine
CPT/HCPCS: 74270

== ENCOUNTER → 2020-09-30 | Outpatient (CLI) | payer MEDICARE ==
--- NOTE | 2020-10-02 11:27 | RAD ---
EXAM: Bilateral digital screening mammogram with tomosynthesis. HISTORY: 65-year-old female presents for screening mammography. TECHNIQUE: Full-field digital craniocaudal and mediolateral oblique 2D and 3D tomosynthesis images of both breasts are obtained for evaluation. Computer aided detection was applied. COMPARISON: 08/06/2015 BREAST PARENCHYMAL DENSITY: Level B - Scattered fibroglandular densities. FINDINGS: There is no new suspicious mass, microcalcification or region of architectural distortion. IMPRESSION: BI-RADS Category 2: Benign finding(s). RECOMMENDATION: Annual mammography is recommended. If your mammogram demonstrates that you have dense breast tissue, which could hide abnormalities, and if you have other risk factors for breast cancer that have been identified, you might benefit from s upplemental screening tests that may be suggested by your ordering physician. Dense breast tissue, i n and of itself, is a relatively common condition. This information is not provided to cause undue c oncern, but rather to raise your awareness and to promote discussion with your physician regarding th e presence of other risk factors, in addition to dense breast tissue. A report of your mammography re sults will be sent to you and your physician. You should contact your physician if you have any ques tions or concerns regarding this report. Mammography is a sensitive method for finding small breast cancers, but it does not detect them all a nd is not a substitute for careful clinical examination. A negative mammogram does not negate a clin ically suspicious finding and should not result in delay in biopsying a clinically suspicious abnorma lity. PQRS compliance statement - Patient information was entered into a reminder system with a target due date for the next mammogram. "Our facility is accredited by the [employer] Mammography Program." Electronically signed by: Kim Roth MD (10/02/2020 11:25 AM) [id number]
== END ==
LOC: MAMMO 15:00
PROVIDERS: ATTEND Family Medicine
DX: Z12.31 Encounter for screening mammogram for malignant neoplasm of breast (principal)
CPT/HCPCS: 77063; 77067

== ENCOUNTER 2020-11-27 07:15 | Emergency (ER) | payer MEDICARE ==
[~2020-11-27] VITALS: Ht 160 cm; Wt 74.0 kg
[~2020-11-27 07:15] MED LIST changes: -OMEP40CA45 PO; +OMEP40CA7 PO
--- NOTE | 2020-11-27 07:33 | PHYS DOC ---
Past History Past Medical History: Anxiety, Depression, High Cholesterol, Hypertension Past Surgical History: , Other Additional Past Surgical Histo: THROAT SURGERY Alcohol Use: None Drug Use: None Adult General Chief Complaint Chief Complaint: MECHANICAL FALL HPI HPI Patient is a 65-year-old female presenting for a fall. Onset was yesterday evening, reports she was trying to garcia her pitbull dog when she lost balance and fell over. She braced her fall but reports falling on her right side, did not hit head, did not lose consciousness. Reports she tried sleeping but rolling over on her right side caused her pain to exacerbate. Denies any significant medical issues, is not on any blood pressure medications, denies any prodromal symptoms prior to fall. Nonetheless, after fall she has been having s uperficial chest wall pain to sternum and right chest wall area. Reports it hurts when she takes deep breaths in Review of Systems Review of Systems Fourteen body systems of review of systems have been reviewed. See HPI for pertinent positives and negative responses, other katz all other systems are negative, non-pertinent or non-contributory Allergies Allergies Allergies Coded Allergies Type Severity Reaction Last Updated Verified No Known Drug Allergies 08/30/14 No Physical Exam Physical Exam Constitutional: Pt is oriented to person, place, and time. Pt appears well-developed and well- nourished. HEENT: Head: Normocephalic and atraumatic. TMs clear, no hemotympanum Conjunctivae and EOM are normal. Pupils are equal, round, and reactive to light. Oropharynx is clear and moist. No hematomas or lacerations or abrasions to face or scalp OP clear, no blood, no malocclusion, dentition intact Nares clear, no nasal septal hematoma Midface stable Neck: C-spine midline nontender, no step-offs Cardiovascular: Normal rate, regular rhythm and normal heart sounds. Pulmonary/Chest: Effort normal and breath sounds normal. No respiratory distress. No wheezes. CTA bilaterally. Right-sided chest wall pain with palpation without any flail chest or visual and/or palpable abnormalities Abdominal: Soft. Bowel sounds are normal. Pt exhibits no distension. There is no tenderness. Musculoskeletal: No bony tenderness to extremities, no deformities, full ROM extremities Chest wall stable Pelvis stable and non-tender No vertebral TTP and spine without stepoffs Neurological: Pt is alert and oriented to person, place, and time. Moving all extremities willfully, able to wiggle all fingers and toes Alert and oriented x 3 Motor and sensory function intact Cranial nerves II through XII intact Skin: Skin is warm and dry. No abrasions, no lacerations Psychiatric: Behavior is appropriate for situation Current Patient Data Vital Signs Vital Signs Date Time Temp Pulse Resp B/P (MAP) Pulse Ox O2 Delivery O2 Flow Rate FiO2 11/27/20 07:38 98.1 84 18 150/78 (102) 98 Room Air Vital Signs Date Time Temp Pulse Resp B/P (MAP) Pulse Ox O2 Delivery O2 Flow Rate FiO2 11/27/20 07:38 98.1 84 18 150/78 (102) 98 Room Air EKG EKG EKG ordered and interpreted by myself at 0731 hrs. as sinus rhythm at 73 bpm, unremarkable intervals, left axis deviation, no acute ischemic findings, no STEMI Radiology/Procedures Radiology/Procedures INDICATION: Reason: fall with right-sided chest wall pain / Spl. Instructions: / History: COMPARISON: June 08, 2019 FINDINGS: 2 view of chest obtained. Hypoexpanded examination of the lungs. Cardiac silhouette is unremarkable. Postoperative changes to the lower cervical spine with plate and screws. A grossly displaced acute fracture is not seen within limits of plain film. There are some probable Schmorl's node formation within the spine as well as repeat demonstration of lower thoracic spine compression deformities. IMPRESSION: * No focal airspace consolidation. * There are some compression deformities within the thoracic spine but these were present on prior as well. Electronically signed by: Scot Merrill MD (11/27/2020 8:17 AM) [id number] Heart Score C/O Chest Pain: No HEART Score for Chest Pain: HEART Score for Chest Pain Response (Comments) Value History Slighlty/Non-Suspicious 0 ECG Nonspecific Repolarizatio 1 Age >45 - < 65 1 Risk Factors >3 Risk Factors or Hx CAD 2 Total 4 Risk Factors: Risk Factors: DM, Current or recent (<one month) smoker, HTN, HLP, family history of CAD, obesity. Risk Scores: Risk Factors: DM, Current or recent (<one month) smoker, HTN, HLP, family history of CAD, obesity. Course & Med Decision Making Course & Med Decision Making Discussed with the patient all findings and diagnostic testing. I discussed most likely diagnosis of chest wall contusion versus other likely self-limiting m usculoskeletal injury. Discussion was had about potential need for further diagnostic work-up in ER setting such as laboratory analysis and further imaging; however, this always deferred due to fact that patient had no prodromal symptoms and her superficial right sided chest wall pain started after fall. I discussed likely self-limiting nature of her symptoms and need for continued supportive care. I stressed need for close outpatient follow-up to review today's ER visit. Strict return precautions were also discussed at length with good understanding by patient. Patient voiced understanding and agreement with the plan. Patient knows to come back for repeat evaluation if concerning signs or symptoms present prior to outpatient follow-up. Hemodynamically stable, ambulatory and well-appearing at time of disposition. Dragon Disclaimer Dragon Disclaimer This electronic medical record was generated, in whole or in part, using a voice recognition dictation system. Departure Departure: Impression: Primary Impression: Contusion of right chest wall Disposition: HOME / SELF CARE / HOMELESS Condition: STABLE Referrals: ALLEN SLATER MD (PCP) Patient Instructions: Chest Contusion Additional Instructions: You were seen for chest wall pain. Your workup did not show any acute abnormalities today, but does not indicate that you do not have underlying cardiovascular disease. Utility of further diagnostic work-up discussed but th is was deferred due to fact that your symptoms started after your fall. You do need to follow up with your primary doctor and potentially a for further evaluation and treatment. You should return to the ED if you develop worsening chest pain, shortness of breath, fever, abnormal sweating, leg swelling, or any other new or concerning symptoms. LISA UTRNER DO Nov 27, 2020 07:33
--- NOTE | 2020-11-27 08:19 | RAD ---
INDICATION: Reason: fall with right-sided chest wall pain / Spl. Instructions: / History: COMPARISON: June 08, 2019 FINDINGS: 2 view of chest obtained. Hypoexpanded examination of the lungs. Cardiac silhouette is unremarkable. Postoperative changes to the lower cervical spine with plate and screws. A grossly displaced acute fracture is not seen within limits of plain film. There are some probable Schmorl's node formation within the spine as well as repeat demonstration of lower thoracic spine compression deformities. IMPRESSION: * No focal airspace consolidation. * There are some compression deformities within the thoracic spine but these were present on prior a s well. Electronically signed by: Scot Merrill MD (11/27/2020 8:17 AM) [id number]
[2020-11-27 08:40] VITALS: BP 142/71
== END 2020-11-27 08:45 | disposition home or self-care (01) ==
LOC: ER 07:15
DX: S20.211A Contusion of right front wall of thorax, initial encounter (principal); E78.5 Hyperlipidemia, unspecified; I10 Essential (primary) hypertension; W01.0XXA Fall on same level from slipping, tripping and stumbling without subsequent striking against object, initial encounter; Y93.89 Activity, other specified; Y92.89 Other specified places as the place of occurrence of the external cause; Y99.8 Other external cause status
CPT/HCPCS: 71046; 99283-25

== ENCOUNTER 2021-03-26 12:05 | Emergency (ER) | payer MEDICARE ==
[~2021-03-26] VITALS: Ht 160 cm; Wt 74.0 kg
[~2021-03-26 12:05] MED LIST changes: -QUET25TA PO; +QUET25TA3 PO
[2021-03-26 12:17] VITALS: BP 122/75
[2021-03-26] MEDS ORDERED: HYDROcodone/APAP 5/325MG 1 TAB TABLET PO ONE (12:30)
--- NOTE | 2021-03-26 12:52 | RAD ---
XR FOOT_RIGHT 3 VIEWS History: Fourth digit deformity Comparison: None. Technique: 3 views of the right foot Findings: Osseous mineralization is normal. Transverse fracture distal metadiaphysis of the fourth toe proximal phalanx with approximately 3 mm lateral displacement of the distal fragment and apex medial angulati on. No significant degenerative changes. Calcifications of the the ankle arteries. Impression: 1. Displaced, angulated fracture fourth toe proximal phalanx. Electronically signed by: Arden Lance MD (03/26/2021 12:50 PM) [id number]
[2021-03-26] MEDS ORDERED: HYDR-2155 PO (13:23)
--- NOTE | 2021-03-26 13:26 | PHYS DOC ---
Past History Past Medical History: Anxiety, Depression, High Cholesterol, Hypertension Past Surgical History: , Other Additional Past Surgical Histo: THROAT SURGERY Alcohol Use: None Drug Use: None General Adult EDM: Chief Complaint: FOOT INJURY PAIN HPI: HPI: Patient is a 65-year-old female who presents with right foot, fourth toe pain after falling down her stairs. Patient denies hitting her head or loss of consciousness. Denies ankle pain. Pedal pulses intact. No swelling. Review of Systems: Review of Systems: The last Current Medications: Current Meds: Current Medications Medications (Trade) Dose Ordered Sig/Lucian Start Time Stop Time Status Last Admin Dose Admin Acetaminophen/ Hydrocodone Bitart (Lortab 5/325) 1 tab 1X ONCE 03/26/21 12:30 03/26/21 12:36 DC Allergies: Allergies: Allergies Coded Allergies Type Severity Reaction Last Updated Verified No Known Drug Allergies 08/30/14 No Physical Exam: PE: Constitutional: Well developed, well nourished, no acute distress, non-toxic appearance. [] HENT: Normocephalic, atraumatic, bilateral external ears normal, oropharynx moist, no oral exudates, nose normal. [] Eyes: PERRLA, EOMI, conjunctiva normal, no discharge. [] Neck: Normal range of motion, no tenderness, supple, no stridor. [] Cardiovascular:Heart rate regular rhythm, no murmur [] Lungs & Thorax: Bilateral breath sounds clear to auscultation [] Abdomen: Bowel sounds normal, soft, no tenderness, no masses, no pulsatile masses. [] Skin: Warm, dry, no erythema, no rash. [] Back: No tenderness, no CVA tenderness. [] Extremities: Right foot, fourth metatarsal tenderness, no cyanosis, no clubbing, ROM intact, no edema. [] Neurologic: Alert and oriented X 3, normal motor function, normal sensory function, no focal deficits noted. [] Psychologic: Affect normal, judgement normal, mood normal. [] Current Patient Data: Vital Signs: Vital Signs Date Time Temp Pulse Resp B/P (MAP) Pulse Ox O2 Delivery O2 Flow Rate FiO2 03/26/21 12:17 97.9 89 16 122/75 (91) 98 Room Air EKG: EKG: [] Radiology/Procedures: Radiology/Procedures: []XR FOOT_RIGHT 3 VIEWS History: Fourth digit deformity Comparison: None. Technique: 3 views of the right foot Findings: Osseous mineralization is normal. Transverse fracture distal metadiaphysis of the fourth toe proximal phalanx with approximately 3 mm lateral displacement of the distal fragment and apex medial angulation. No significant degenerative changes. Calcifications of the the ankle arteries. Impression: 1. Displaced, angulated fracture fourth toe proximal phalanx. Electronically signed by: Arden Lance MD (03/26/2021 12:50 PM) [id number] Heart Score: C/O Chest Pain: No Risk Factors: Risk Factors: DM, Current or recent (<one month) smoker, HTN, HLP, family history of CAD, obesity. Risk Scores: Score 0 - 3: 2.5% MACE over next 6 weeks - Discharge Home Score 4 - 6: 20.3% MACE over next 6 weeks - Admit for Clinical Observation Score 7 - 10: 72.7% MACE over next 6 weeks - Early Invasive Strategies Course & Med Decision Making: Course & Med Decision Making Pertinent Labs and Imaging studies reviewed. (See chart for details) Fracture fourth toe proximal phalanx. Toes are john taped and postop shoe provided. Sent patient home with hydrocodone. Motrin for breakthrough pain. Please follow-up with PCP in 2 to 3 days. Steve Disclaimer: Steve Disclaimer: This electronic medical record was generated, in whole or in part, using a voice recognition dictation system. Departure Departure: Impression: Primary Impression: Closed fracture of phalanx of fourth toe Disposition: HOME / SELF CARE / HOMELESS Condition: STABLE Referrals: ALLEN SLATER MD (PCP) Patient Instructions: Toe Fracture Additional Instructions: You have a fracture to your fourth toe. Postop shoe was provided . Weightbearing as tolerated. Follow-up with PCP in 2 to 3 days. Motrin for discomfort. Sending you home with prescription for pain medication EMERGENCY DEPARTMENT GENERAL DISCHARGE INSTRUCTIONS Thank you for coming to [facility] (ED) today and trusting us with you care. We trust that you had a positivie experience in our Emergency Department. If you wish to speak to the department management, you may call the director at [phone]. YOUR FOLLOW UP INSTRUCTIONS ARE FOLLOWS: 1. Do you have a private Doctor? If you do not have a private doctor, please ask for a resource list of physicians or clinics that may be able to assist you with follow up care. 2. The Emergency Physician has interpreted your x-rays. The X-Ray specialist will also review them. If there is a change in the findings, you will be notified in 48 hours when at all possible. 3. A lab test or culture has been done, your results will be reviewed and you will be notified if you need a change in treatment. ADDITIONAL INSTRUCTIONS AND INFORMATION: 1. Your care today has been supervised by a physician who is specially trained in emergency care. Many problems require more than one evaluation for a complete diagnosis and treatment. We recommend that you schedule your follow up appointment as recommended to ensure complete treatment of you illness or injury. If you are unable to obtain follow up care and continue to have a problem, or if your condition worsens, we recommend that you return to the ED. 2. We are not able to safely determine your condition over the phone nor are we able to give sound medical advice over the phone. For these safety reasons, if you call for medical advice we will ask you to come to the ED for further evaluation. 3. If you have any questions regarding these discharge instructions please call the ED at [phone]. SAFETY INFORMATION: In the interest of safety, wellness, and injury prevention; we encourage you to wear your sealbelt, if you smoke; quite smoking, and we encourage family to use a protective helmet for bicycling and other sporting events that present an increased risk for head injury. IF YOUR SYMPTOMS WORSEN OR NEW SYMPTOMS DEVELOP, OR YOU HAVE CONCERNS ABOUT YOUR CONDITION; OR IF YOUR CONDITION WORSENS WHILE YOU ARE WAITING FOR YOUR FOLLOW UP APPOINTMENT; EITHER CONTACT YOUR PRIMARY CARE DOCTOR, THE PHYSICIAN WHOSE NAME AND NUMBER YOU WERE GIVEN, OR RETURN TO THE ED IMMEDIATELY. Scripts Hydrocodone Bit/Acetaminophen (HYDROCODONE-APAP 5-325 ) 1 Each Tablet 1-2 TAB PO PRN Q6HRS PRN for PAIN for 3 Days, #12 TAB 0 Refills Prov: DC MOSLEY APRN 03/26/21 DC MOSLEY APRN Mar 26, 2021 13:26
== END 2021-03-26 13:36 | disposition home or self-care (01) ==
LOC: ER 12:05
DX: S92.511A Displaced fracture of proximal phalanx of right lesser toe(s), initial encounter for closed fracture (principal); F41.9 Anxiety disorder, unspecified; F32.9 Major depressive disorder, single episode, unspecified; E78.00 Pure hypercholesterolemia, unspecified; I10 Essential (primary) hypertension; W10.8XXA Fall (on) (from) other stairs and steps, initial encounter; Y93.89 Activity, other specified; Y92.89 Other specified places as the place of occurrence of the external cause; Y99.8 Other external cause status
CPT/HCPCS: 73630; 99283

== ENCOUNTER → 2021-05-08 | Outpatient (CLI) | payer MEDICARE, OTHER ==
[~2021-05-08] MED LIST changes: -CYCL-331 PO; +CYCL10TA19 PO; +HYDR-2155 PO
--- NOTE | 2021-05-08 17:13 | RAD ---
EXAM: AP, bilateral oblique and lateral views of both feet DATE: 05/08/2021 2:00 PM INDICATION: Reason: FOOT PAIN, FX IN RIGHT TOE / Spl. Instructions: / History: . COMPARISON: No Prior FINDINGS: Pes planus bilaterally. Bilateral hindfoot valgus. Uncovering of the talar head bilaterally. Transver se sclerotic band right fourth metatarsal base. No acute fracture or dislocation. Atherosclerotic vascular calcifications are seen. IMPRESSION: Bilateral pes planus and hindfoot valgus with uncovering of the talar head bilaterally. Transverse sclerotic band base of the right fourth metatarsal may represent stress reaction. If this is symptomatic and further imaging is required, MRI may provide additional details. Electronically signed by: Sherman Molina MD (05/08/2021 5:10 PM) [id number]
== END ==
LOC: RAD 13:44
PROVIDERS: ATTEND Orthopaedic Surgery
DX: M21.42 Flat foot [pes planus] (acquired), left foot (principal); M21.41 Flat foot [pes planus] (acquired), right foot; M21.072 Valgus deformity, not elsewhere classified, left ankle; M21.071 Valgus deformity, not elsewhere classified, right ankle
CPT/HCPCS: 73630-50